=== PATIENT | female | born 1955 | race Caucasian/White ===

== ENCOUNTER 2017-04-26 17:30 | Emergency (ER) | payer BC ==
[~2017-04-26] VITALS: Ht 172.7 cm; Wt 104.1 kg
[2017-04-26 17:35] VITALS: TEMP 36.6; Ht 172.7 cm; Wt 104.1 kg
[2017-04-26] MEDS ORDERED: LIRA18IN SC (18:05)
[2017-04-26] MEDS ORDERED: ROSU5TAB PO (18:05)
[2017-04-26] MEDS ORDERED: INSDGIPEN SC (18:05)
[2017-04-26] MEDS ORDERED: PANT40TA PO (18:05)
[2017-04-26] MEDS ORDERED: MELO7.5T5 PO (18:05)
[2017-04-26] MEDS ORDERED: METF1TAB53 PO (18:05)
[2017-04-26] MEDS ORDERED: FENO48TA9 PO (18:05)
[2017-04-26] MEDS ORDERED: ZNTT/150 PO (18:05)
[2017-04-26] MEDS ORDERED: EMPA1TAB PO (18:05)
--- NOTE | 2017-04-26 19:02 | DIAGNOSTIC IMAGING REPORT ---
L ANKLE MIN 3 VIEWS ROUTINE HISTORY: 61 years-old Female LEFT, EVAL FX, TWISTING INJURY acute left ankle pain status post twisting injury. Initial exam COMPARISON: None available TECHNIQUE: 3 views of the left ankle FINDINGS: Moderate tibiotalar and mild talonavicular osteoarthritis. Small plantar enthesophyte. No acute fracture or dislocation. Mild to moderate soft tissue swelling about the ankle, greatest anterolaterally. No opaque foreign body. IMPRESSION: 1. Mild to moderate soft tissue swelling, greatest anterolaterally without acute fracture or dislocation. 2. Degenerative changes as above. The above report was generated using voice recognition software. It may contain grammatical, syntax or spelling errors. Electronically signed by: Calvin Taveras M.D. 04/26/2017 7:01 PM Dictated Date/Time: 04/26/2017 6:59 PM
--- NOTE | 2017-04-26 19:06 | EMERGENCY ROOM VISIT NOTE ---
ED Visit Note First contact with patient: 17:38 CHIEF COMPLAINT: Left ankle injury this morning HISTORY OF PRESENT ILLNESS: Patient is a 61-year-old white female who presents emergency department for evaluation of left ankle pain after an injury this morning. She slipped on wet grass and fell, twisting the left leg. Initially the pain was from her ankle all the way up to her hip. As the day has progressed however, the pain has localized more to the ankle. She has kept her boot on all day. She is able to bear weight but it is painful. She took some Tylenol. She rates her pain a 9/10. REVIEW OF SYSTEMS: Review of systems as per HPI. All other systems reviewed were negative. At least 6 systems reviewed. PMH: Electronic medical records are reviewed and summarized as above/below. See Problem List. SOCIAL HISTORY: Patient lives at home with her family. Nonsmoker. PHYSICAL EXAM: Vital Signs: Reviewed Nurse's notes. MENTAL STATUS: Alert, oriented, and cooperative. The left ankle is swollen and tender over the lateral aspect but the skin is intact and there is no ligamentous instability. No pain over the 5th metatarsal or fibular head. Lisfranc joint is negative. There is no deformity. The foot and toes are warm and well-perfused. Sensation to pain and light touch is intact. EMERGENCY DEPARTMENT COURSE: Patient was given an ice pack. X-rays of the left ankle were obtained. X-ray reveals no fracture, mild degenerative changes and soft tissue swelling were noted. A compression sleeve and gel splint were applied to the ankle under my direction and the position was satisfactory. Crutches were issued and patient was instructed on a non weight bearing gait. Differential diagnosis include foot verses ankle sprain/fracture, contusion, dislocation. Blood pressure screening : Patient was found to have normal blood pressure on screening and does not require follow-up. Medication reconciliation: I attest that I have personally reviewed the patient' s current medication list. L ANKLE MIN 3 VIEWS ROUTINE HISTORY: 61 years-old Female LEFT, EVAL FX, TWISTING INJURY acute left ankle pain status post twisting injury. Initial exam COMPARISON: None available TECHNIQUE: 3 views of the left ankle FINDINGS: Moderate tibiotalar and mild talonavicular osteoarthritis. Small plantar enthesophyte. No acute fracture or dislocation. Mild to moderate soft tissue swelling about the ankle, greatest anterolaterally. No opaque foreign body. IMPRESSION: 1. Mild to moderate soft tissue swelling, greatest anterolaterally without acute fracture or dislocation. 2. Degenerative changes as above. Problem List Medical Problems: (1) Asthma Status: Chronic (2) Diabetes Status: Chronic Surgical Problems: (1) History of cholecystectomy Status: Resolved (2) History of hysterectomy Status: Resolved Current/Historical Medications Scheduled Empagliflozin (Jardiance), Unknown Dose PO DAILY Fenofibrate (Tricor), Unknown Dose PO DAILY Insulin Glargine (Lantus Solostar), 38 UNITS SC DAILY Liraglutide (Victoza), 1.8 ML SC DAILY Meloxicam (Mobic), 7.5 MG PO DAILY Metformin Hcl (Glucophage Ext Rel), 1,000 MG PO BID Pantoprazole (Protonix), 40 MG PO DAILY Ranitidine (Zantac), 150 MG PO BID Rosuvastatin Calcium (Crestor), Unknown Dose PO DAILY Allergies Coded Allergies: Iodinated Diagnostic Agents (Verified Allergy, Severe, Respiratory Arrest , 04/26/17) Sulfa Antibiotics (Verified Allergy, Mild, Hives, 04/26/17) Vital Signs Date Time Temp Pulse Resp B/P (MAP) Pulse Ox O2 Delivery O2 Flow Rate FiO2 04/26/17 19:10 74 18 109/83 98 Room Air 04/26/17 17:35 36.6 96 20 130/75 95 Room Air Departure Information Impression Primary Impression: Left ankle sprain Referrals Priscilla Kingsley PA-C (PCP) Patient Instructions [facility] Additional Instructions Ibuprofen(Motrin, Advil) may be used for fever or pain. Use 600mg every six hours as needed. Take with food. Avoid using more than 2400mg in a 24 hour period. Do not use 2400mg per day for more than three consecutive days without physician direction. Prolonged inappropriate use can lead to stomach upset or ulcers. This medication can be taken if you need to drive, work, or perform activities which may be dangerous when taking narcotic pain medication. (AND/OR) Acetaminophen(Tylenol) may be used for fever or pain. Use 1000mg every six hours as needed. Avoid using more than 3000mg in a 24 hour period. This medication can be taken if you need to drive, work, or perform activities which may be dangerous when taking narcotic pain medication. Ice compresses for 20 minutes at a time four times daily for 2-3 days. Use the gel splint and crutches as instructed. Rest and elevate your injury. Continue current medications. Return to the ER immediately for any numbness, tingling, severe pain, extreme swelling in the extremity or as needed. Followup with your family doctor or orthopedic surgery if no improvement in 5-7 days.
[2017-04-26 19:10] VITALS: BP 109/83; PULSE 74; O2SAT 98
== END 2017-04-26 19:12 | disposition home or self-care (01) ==
LOC: C.EDB 17:31 → C.EDD 19:12
DX: S93.402A Sprain of unspecified ligament of left ankle, initial encounter (principal); W01.0XXA Fall on same level from slipping, tripping and stumbling without subsequent striking against object, initial encounter; E11.9 Type 2 diabetes mellitus without complications; J45.909 Unspecified asthma, uncomplicated; Z90.710 Acquired absence of both cervix and uterus; Z90.49 Acquired absence of other specified parts of digestive tract; Z79.4 Long term (current) use of insulin; Z79.84 Long term (current) use of oral hypoglycemic drugs; Z79.899 Other long term (current) drug therapy